=== PATIENT | female | born 1975 | race Caucasian/White ===

== ENCOUNTER 2016-12-14 16:03 | Emergency (ER) | payer MEDICAID ==
[~2016-12-14] VITALS: Ht 165.1 cm; Wt 83.6 kg
[~2016-12-14 16:03] MED LIST: CIPR500T4 PO; IBUP600 PO; PROM25SU8 PO
[2016-12-14 16:15] VITALS: BP 86/51; PULSE 69; RESP 16; TEMP 98.9; O2SAT 94
[2016-12-14] MEDS ORDERED: KETOROLAC TROMETHAMINE 60 MG/2 ML (IM) VIAL IM ONE (16:30)
--- NOTE | 2016-12-14 16:33 | PD ---
HPI Chief Complaint: Oral / Dental Pain or Problem Time Seen by Provider: 16:20 Travel History International Travel<30 days: No Contact w/Intl Traveler<30days: No Traveled to known affect area: No History of Present Illness HPI 41yo F with PMH of opioid abuse on methadone 70mg daily presents to the ED with c/o tooth pain for 2 days. Pain is where tooth #17 is and pt has not taken anything for pain yet. Denies any fever, drooling, chest pain, sob, n/v, abdominal pain, weakness or numbness. Pt has an appointment with her dentist next Monday but here for pain. History Past Medical History Menopausal: No : 3 Para: 3 Social History Alcohol Use: Yes (PT STATES " OCCASIONAL DRINK" DRANK YESTERDAY.) Tobacco Use: Yes (E CIGARETTE) Allergies-Medications (Allergen,Severity, Reaction): Coded Allergies: No Known Allergies (Verified , 12/14/16) Reported Meds & Prescriptions Reported Meds & Active Scripts Active Reported Methadone (Methadone HCl) 40 Mg Tab 70 Mg PO DAILY Review of Systems Except as stated in HPI: all other systems reviewed are Neg Physical Exam Narrative GENERAL: 41yo F not in acute distress. SKIN: Warm and dry. HEAD: Atraumatic. Normocephalic. EYES: Pupils equal and round. No scleral icterus. No injection or drainage. ENT: Mouth: +TTP tooth #17. +TTP gingiva on tooth #17. no fluctuance. NECK: Trachea midline. No JVD. CARDIOVASCULAR: Regular rate and rhythm. No murmur appreciated. RESPIRATORY: No accessory muscle use. Clear to auscultation. Breath sounds equal bilaterally. GASTROINTESTINAL: Abdomen soft, non-tender, nondistended. Hepatic and splenic margins not palpable. MUSCULOSKELETAL: No obvious deformities. No clubbing. No cyanosis. No edema. NEUROLOGICAL: Awake and alert. No obvious cranial nerve deficits. Motor grossly within normal limits. Normal speech. PSYCHIATRIC: Appropriate mood and affect; insight and judgment normal. Data Data Last Documented VS Vital Signs Date Time Temp Pulse Resp B/P Pulse Ox O2 Delivery O2 Flow Rate FiO2 12/14/16 17:01 69 17 91/43 96 Room Air 12/14/16 16:15 98.9 Orders Ketorolac Inj (Toradol Inj) (12/14/16 16:30) [facility] Medical Decision Making Medical Screen Exam Complete: Yes Emergency Medical Condition: Yes Differential Diagnosis Tooth decay vs. gingivitis vs. impacted tooth Narrative Course 41yo well appearing female with tooth pain for 2 days. Pt is hypotensive but states that is her normal blood pressure. Pt is not febrile or tachycardic. Pt does take methadone 70mg daily. Will give toradol 30mg IM and reevaluate. Pt reevaluated at bedside and states tooth pain has improved. Pt is nontoxic appearing and has appointment with dentist as outpatient. Pt is hypotensive but states that is her baseline and has no symptoms or tachycardia. Diagnosis Primary Impression: Tooth pain Patient Instructions: General Instructions Departure Forms: Tests/Procedures Additional Instructions: Please follow up with your dentist on your appointment date. Return to the ED if symptoms worsen. Med/Other Pt SpecificInfo: Prescription(s) given Scripts Ibuprofen 600 Mg Fux336 Mg PO Q8HR PRN (PAIN) #20 TAB Ref 0 Prov:Rachel Juárez DO 12/14/16 Disposition: 01 DISCHARGE HOME Condition: Stable Rachel Juárez DO Dec 14, 2016 16:33
[2016-12-14] MEDS ORDERED: METH40TA PO (16:39)
[2016-12-14 17:01] VITALS: BP_SYST 91; BP_SYST 97; BP_DIAS 31; BP_DIAS 43; PULSE 69; RESP 17; O2SAT 96
[2016-12-14] MEDS ORDERED: IBUP-232 PO (17:34)
== END 2016-12-14 17:40 | disposition home or self-care (01) ==
LOC: PHED 16:03
DX: K08.89 Other specified disorders of teeth and supporting structures (principal); Z72.0 Tobacco use
CPT/HCPCS: 96372; 99282; J1885